=== PATIENT | male | born 1985 | race Hispanic/Latino ===

== ENCOUNTER 2024-05-21 11:51 | Emergency (ER) | payer BC ==
[~2024-05-21] VITALS: Ht 165.1 cm; Wt 88.5 kg
[2024-05-21 11:57] VITALS: TEMP 101.6
[2024-05-21 12:41] LABS: BASOPHILS % 0.4 % (0.0-1.0); EOSINOPHILS # (AUTO) 0.1 (0.0-0.4); EOSINOPHILS % 0.5 % (0.0-6.0); HEMOGLOBIN 17.4 g/dL (14.0-18.0); LYMPHOCYTES # (AUTO) 0.8 (1.0-3.2); LYMPHOCYTES % 7.4 % (18.0-39.1); MEAN CORPUSCULAR HGB CONC 33.5 g/dL (31-35); MEAN CORPUSCULAR VOLUME 86.7 fL (81-99); MONOCYTES # (AUTO) 0.7 (0.2-0.8); MONOCYTES % 7.1 % (4.4-11.3); NEUTROPHILS # (AUTO) 8.6 (2.1-6.9); NEUTROPHILS % 84.2 % (38.7-80.0); PLATELET COUNT 255 x10e3/uL (140-360)
[2024-05-21 12:50] LABS: INR 0.94; PROTHROMBIN TIME 13.2 seconds (11.9-14.5)
[2024-05-21 12:51] LABS: PARTIAL THROMBOPLASTIN TIME 25.2 seconds (23.8-35.5)
[2024-05-21] MEDS: ACETAMINOPHEN 1000 MG/100 ML IV ONE (12:54)
[2024-05-21] MEDS: ONDANSETRON HCL INJ 2MG/ML 2ML 2 MG/ML VIAL IV STA (12:54)
[2024-05-21] MEDS: SODIUM CHLORIDE 0.9% 1000ML 2,650 ML IV SCH (12:54)
[2024-05-21] MEDS: Morphine 4mg INJECTION 4 MG/ML INJ IV STA (12:55)
[2024-05-21 13:01] LABS: ALBUMIN 4.8 g/dL (3.5-5.0); ANION GAP 18.9 mmol/L (8-16); BILIRUBIN,TOTAL 0.6 mg/dL (0.2-1.2); CALCIUM 9.7 mg/dL (8.4-10.2); CREATININE, SERUM 1.71 mg/dL (0.72-1.25); POTASSIUM 3.9 mmol/L (3.5-5.1); TOTAL PROTEIN 9.4 g/dL (6.5-8.1)
[2024-05-21] MEDS ORDERED: SODIUM CHLORIDE 0.9% 500ML 500 ML ONE (13:02)
[2024-05-21 13:09] LABS: INFLUENZA A AG NEGATIVE (NEGATIVE)
[2024-05-21 13:10] LABS: CORONAVIRUS COVID-19 AG NEGATIVE (NEGATIVE); INFLUENZA B AG NEGATIVE (NEGATIVE)
[2024-05-21] MEDS ORDERED: IOPAMIDOL 370 MG/ML 100 ML INFUS..BTL INJ ONE (13:23)
[2024-05-21 14:10] LABS: TROPONIN I 0.009 ng/mL (0-0.300)
[2024-05-21 14:30] VITALS: PULSE 83; RESP 16; O2SAT 97
[2024-05-21 15:13] LABS: BILIRUBIN,URINE NEGATIVE (NEGATIVE); CLARITY,URINE CLEAR (CLEAR); COLOR,URINE YELLOW (YELLOW); GLUCOSE, URINE NEGATIVE (NEGATIVE); KETONES,URINE NEGATIVE (NEGATIVE); LEUKOCYTE ESTERASE ,URINE NEGATIVE (NEGATIVE); NITRITE,URINE NEGATIVE (NEGATIVE); PH,URINE 5.5 (5 - 7); PROTEIN,URINE DIPSTICK 2+ (NEGATIVE); URINE UROBILINOGEN 0.2 mg/dL (0.2 - 1)
[2024-05-21 15:27] LABS: BACTERIA,URINE FEW /HPF; EPITHELIAL CELLS,URINE FEW /LPF; RBC,URINE 0-5 /HPF (0-5)
[2024-05-21] MEDS ORDERED: DICYCLOMINE HCL20 MG PO (17:27)
[2024-05-21] MEDS ORDERED: CIPRO500 MG PO (17:27)
== END 2024-05-21 18:17 | disposition home or self-care (01) ==
LOC: ER 12:07
DX: R50.9 Fever, unspecified (principal); K80.50 Calculus of bile duct without cholangitis or cholecystitis without obstruction; R19.7 Diarrhea, unspecified; N28.9 Disorder of kidney and ureter, unspecified; K76.0 Fatty (change of) liver, not elsewhere classified; R94.31 Abnormal electrocardiogram [ECG] [EKG]; Z11.52 Encounter for screening for COVID-19
CPT/HCPCS: 36415; 71045; 71260; 74177; 76705; 80053; 81001; 82550; 83605; 83690; 83735; 84484; 85025; 85610; 85730; 87040; 87086; 87428; 93005; 99284; J0131; J2270; J2405; J2470; J2543; J7040; Q9967